=== PATIENT | male | born 1975 | race Two or more races ===

== ENCOUNTER 2024-11-15 22:11 | Emergency (ER) | payer MEDICAID, OTHER ==
[~2024-11-15] VITALS: Ht 188 cm; Wt 98.7 kg
--- NOTE | 2024-11-15 22:39 | ED.PDOC ---
GI ASSESSMENT HPI Comments 49 year old male presents to the ED with a chief complaint of abdominal pain onset today (11/15/24) around 16:00. Patient began experiencing sharp, epigastric pain around 16:00, shortly after eating dinner as well as an episode of nausea/vomiting. Over the weekend, patient states he was working under the sun, was drinking lemonade with salt, began experiencing diarrhea and took Imodium medication. Today, patient took Omeprazole and Pepcid, medication that was prescribed to his son for similar symptoms, had no relief of symptoms. Denies fever, chills, hematemesis, melena, dizziness, chest pain, shortness of breath, dysuria, hematuria. No other associated symptoms, modifiers, recent injuries or sick contacts present at this time. Chief Complaint: Abdominal Pain Time Seen by MD: 22:25 Reviewed Notes: Medications, Allergies Allergies: Coded Allergies: NO KNOWN ALLERGIES (Unverified , 11/15/24) Home Meds Active Scripts Gabapentin (Once-Daily) (Gabapentin) 300 Mg Tab, 300 MG PO Q6HP PRN, #60 TAB Prov:CESAR MARQUEZ MD 11/16/24 Ondansetron HCl (Ondansetron Hydrochloride) 8 Mg Tab, 8 MG PO Q6HP PRN, #30 TAB Prov:CESAR MARQUEZ MD 11/16/24 Information Source: Patient, Spouse Mode of Arrival: Ambulatory Timing: Hours Duration: Since onset Prehospital treatment: None Quality: Sharp Severity: Moderate Recent: None Recent Hx of: None Pain Location: Epigastric Modifying Factors: Nothing Associated sign and symptoms: Nausea, Vomiting, Abdominal Pain Past Medical History PAST MEDICAL HISTORY: Denies Surgical History: Cholecystectomy Family History Family History: Reviewed,noncontributory to illness, No family hx of Cancer, No family hx of DM, No family hx of Heart christina, No family hx of HTN, No family hx ofKidney christina, No family hx of Liver christina, No family hx of Lung christina, No family hx of Stroke Social History Smoker: Non-Smoker Alcohol: Denies ETOH Use Drugs: Denies Drug Use Lives In: Home Constitutional: denies: chills, diaphoresis, fatigue, fever, malaise, sweats, weakness, others EENTM: denies: blurred vision, double vision, ear bleeding, ear discharge, ear drainage, ear pain, ear ringing, eye pain, eye redness, hearing loss, mouth pain, mouth swelling, nasal discharge, nose bleeding, nose congestion, nose pain, photophobia, tearing, throat pain, throat swelling, voice changes, others Respiratory: denies: cough, hemoptysis, orthopnea, SOB at rest, shortness of breath, SOB with excertion, stridor, wheezing, others Cardiovascular: denies: chest pain, dizzy spells, diaphoresis, Dyspnea on exertion, edema, irregular heart beat, left arm pain, lightheadedness, palpitations, PND, syncope, others Gastrointestinal: reports: abdominal pain, nausea, vomiting; denies: abdomen distended, blood streaked bowels, constipated, diarrhea, dysphagia, difficulty swallowing, hematemesis, melena, poor appetite, poor fluid intake, rectal bleeding, rectal pain, others Genitourinary: denies: burning, dysuria, flank pain, frequency, hematuria, incontinence, penile discharge, penile sore, pain, testicle pain, testicle swelling, urgency, others Neurological: denies: dizziness, fainting, headache, left sided numbness, left sided weakness, numbness, paresthesia, pre-existing deficit, right sided numbness, right sided weakness, seizure, speech problems, tingling, tremors, weakness, others Musculoskeletal: denies: back pain, gout, joint pain, joint swelling, muscle pain, muscle stiffness, neck pain, others Integumetry: denies: bruises, change in color, change in hair/nails, dryness, laceration, lesions, lumps, rash, wounds, others Allergic/Immunocompromised: denies: Difficulty Healing, Frequent Infections, Hives, Itching, others Hematologic/Lymphatic: denies: anemia, blood clots, easy bleeding, easy bruising, swollen glands, others Endocrine: denies: excessive hunger, excessive sweating, excessive thirst, excessive urination, flushing, intolerance to cold, intolerance to heat, unexplained weight gain, unexplained weight loss, others Psychiatric: denies: anxiety, bipolar disorder, depression, hopeless, panic disorder, schizophrenia, sleepless, suicidal, others All Other Systems: Reviewed and Negative Physical Exam General Appearance: Normal HEENT: Normal ENT Inspection, Pharynx Normal, TMs Normal Neck: Full Range of Motion, Non-Tender, Normal, Normal Inspection Respiratory: Chest Non-Tender, Lungs Clear, No Accessory Muscle Use, No Respiratory Distress, Normal Breath Sounds Cardiovascular: No Edema, No JVD, No Murmur, No Gallop, Normal Peripheral Pulses, Regular Rate/Rhythm Breast Exam: Deferred Gastrointestinal: No Organomegaly, Non Tender, No Pulsatile Mass, Normal Bowel Sounds, Soft Genitalia: Deferred Pelvic: Deferred Rectal: Deferred Extremities: No calf tenderness, Normal capillary refill, Normal inspection, Normal range of motion, Non-tender, No pedal edema Musculoskeletal : Apperance: Normal Neurologic: Alert, inspector health care facilities II-XII nml as Tested, No Motor Deficits, Normal Affect, Normal Mood, No Sensory Deficits Cerebellar Function: Normal Reflexes: Normal Skin: Dry, Normal Color, Warm Lymphatic: No Adenopathy Was a procedure done? Was a procedure done?: No GI differential Dx Differential Diagnosis: Appendicitis, Cholecystitis, Constipation, Diverticular disease, Gastritis/PUD, Gastroenteritis, GI hemorrhage, Hernia, Inflammatory BD, Ischemic Bowel, Other X-Ray, Labs, Meds, VS Vital Signs Date Time Temp Pulse Resp B/P (MAP) Pulse Ox O2 Delivery O2 Flow Rate FiO2 11/16/24 04:15 77 18 94 Room Air* 0 21 11/16/24 04:15 98.2 94 18 129/82 (98) 94 98.2 11/16/24 02:44 86 18 128/76 (93) 95 11/16/24 02:09 83 19 128/76 11/16/24 01:39 80 18 134/88 11/16/24 01:32 99.0 87 18 134/88 (103) 96 99.0 11/15/24 22:24 100.0 90 14 154/92 96 100.0 Lab Test 11/15/24 22:40 11/15/24 22:23 Range/Units White Blood Count 12.4 H 4.4-10.8 10^3/uL Red Blood Count 4.79 4.5-5.90 10^6/uL Hemoglobin 15.0 13.5-17.5 g/dL Hematocrit 44.2 41.0-53.0 % Mean Corpuscular Volume 92.3 80.0-100.0 fL Mean Corpuscular Hemoglobin 31.4 28.0-32.0 pg Mean Corpuscular Hemoglobin Concent 34.1 32.0-36.0 g/dL Red Cell Distribution Width 14.2 11.8-14.3 % Platelet Count 194 140-450 10^3/uL Mean Platelet Volume 9.4 6.9-10.8 fL Neutrophils (%) (Auto) 93.8 H 37.0-80.0 % Lymphocytes (%) (Auto) 3.6 L 10.0-50.0 % Monocytes (%) (Auto) 2.6 0.0-12.0 % Eosinophils (%) (Auto) 0.0 0.0-7.0 % Basophils (%) (Auto) 0.0 0.0-2.0 % Neutrophils # (Auto) 11.6 H 1.6-8.6 10 ^3/uL Lymphocytes # (Auto) 0.4 0.4-5.4 10 ^3/uL Monocytes # (Auto) 0.3 0-1.3 10 ^3/uL Eosinophils # (Auto) 0 0-0.8 10 ^3/uL Basophils # (Auto) 0 0-0.2 10 ^3/uL Nucleated Red Blood Cells 0.0 % Sodium Level 142 136-145 mmol/L Potassium Level 4.1 3.5-5.1 mmol/L Chloride Level 106 98-107 mmol/L Carbon Dioxide Level 28 20-31 mmol/L Anion Gap 8 5-15 Blood Urea Nitrogen 13 9-23 mg/dL Creatinine 1.19 0.700-1.30 mg/dL Glomerular Filtration Rate Calc 74 >90 mL/min BUN/Creatinine Ratio 10.9 10.0-20.0 Serum Glucose 142 H 74-106 mg/dL Calcium Level 9.9 8.7-10.4 mg/dL Total Bilirubin 2.0 H 0.2-1.0 mg/dL Aspartate Amino Transferase (AST) 588 H 13-40 U/L Alanine Aminotransferase (ALT) 448 H 7-40 U/L Alkaline Phosphatase 119 H 46-116 U/L Total Protein 7.6 5.7-8.2 g/dL Albumin 4.9 H 3.2-4.8 g/dL Lipase 81 H 12-53 U/L Urine Color Yellow Yellow Urine Clarity Clear Clear Urine pH 8.0 5.0-9.0 Urine Specific [place] 1.020 1.001-1.035 Urine Protein Negative Negative Urine Ketones Negative Negative Urine Blood Negative Negative /uL Urine Nitrite Negative Negative Urine Bilirubin Negative Negative Urine Urobilinogen 2 H Negative mg/dL Urine Leukocyte Esterase Negative Negative /uL Urine RBC 1 0 - 3 /hpf Urine Microscopic WBC 1 0-3 /HPF Urine Squamous Epithelial Cells Few <5 /hpf Urine Bacteria None seen None Seen /hpf Urine Mucus Few None Seen Urine Glucose 1+ H Normal mg/dL Current Medications Medications (Trade) Dose Ordered Sig/Korina Route Start Time Stop Time Status Last Admin Ondansetron HCl (Zofran) 4 mg ONCE ONCE IV 11/15/24 22:45 11/15/24 22:46 DC 11/16/24 01:38 Sodium Chloride 1,000 ml @ 1,000 mls/hr Q1H ONCE IVB 11/15/24 22:45 11/15/24 23:44 DC 11/16/24 01:39 Morphine Sulfate 4 mg ONCE ONCE IV 11/15/24 22:45 11/15/24 22:46 DC 11/16/24 01:39 Time of 1ST Reevaluation: 22:55 Reevaluation 1ST: Unchanged Patient Education/Counseling: Diagnosis, Treatment, Prognosis Family Education/Counseling: Diagnosis, Treatment, Prognosis Additional Information The following tests were ordered, and results were reviewed by me: CBC, CMP, LIPASE, UA, CT AB PEL WITH IV CON Additional Information was gathered from interviewing the following independent historians: spouse I reviewed and agreed with the following test results read by other providers: CT AB PEL WITH IV CON I discussed treatment and results with medical personnel and: patient and spouse Comprehensive systems review obtained and negative except for what is stated in the HPI. SEPSIS Sepsis Screen Date sepsis recognized/suspect: Nov 15, 2024 Time Sepsis recognized/suspect: 2223 Recent Procedure: No On Antibiotic Therapy: No Respiratory Rate >20: No Heart Rate >90: No Temp<36 C (96.8 F) or >38.3 C: No SBP <90 or MAP <65 mmHG: No New Acute Mental Status Change: No Is the patient on CPAP, BIPAP,: No Physician Orders Ct Ab Pel With Iv Con Only (11/15/24 22:33) Vital Signs Date Time Temp Pulse Resp B/P (MAP) Pulse Ox O2 Delivery O2 Flow Rate FiO2 11/16/24 04:15 77 18 94 Room Air* 0 21 11/16/24 04:15 98.2 94 18 129/82 (98) 94 98.2 11/16/24 02:44 86 18 128/76 (93) 95 11/16/24 02:09 83 19 128/76 11/16/24 01:39 80 18 134/88 11/16/24 01:32 99.0 87 18 134/88 (103) 96 99.0 11/15/24 22:24 100.0 90 14 154/92 96 100.0 Laboratory Tests Test 11/15/24 22:40 White Blood Count 12.4 10^3/uL (4.4-10.8) H Medications Medications Dose Ordered Sig/Korina Route Start Time Stop Time Status Last Admin Dose Admin Morphine Sulfate 4 mg ONCE ONCE IV 11/15/24 22:45 11/15/24 22:46 DC 11/16/24 01:39 Ondansetron HCl 4 mg ONCE ONCE IV 11/15/24 22:45 11/15/24 22:46 DC 11/16/24 01:38 Sodium Chloride 1,000 ml @ 1,000 mls/hr Q1H ONCE IVB 11/15/24 22:45 11/15/24 23:44 DC 11/16/24 01:39 Departure 1 Departure Time of Disposition: 01:00 Impression: Primary Impression: Pancreatitis Additional Impression: Elevated liver function tests Disposition: HOME / SELF CARE / HOMELESS Condition: Stable e-Prescriptions Gabapentin (Once-Daily) (Gabapentin) 300 Mg Tab 300 MG PO Q6HP PRN, #60 TAB Prov: CESAR MARQUEZ MD 11/16/24 Ondansetron HCl (Ondansetron Hydrochloride) 8 Mg Tab 8 MG PO Q6HP PRN, #30 TAB Prov: CESAR MARQUEZ MD 11/16/24 Discharged With: Self Critical Care Note Critical Care Time?: No Stability Stability form required: No I personally scribed for CESAR MARQUEZ MD ([email or web address]) on 11/15/24 at 22:39. Electronically submitted by Mica Chinchilla ([email or web address]). I personally scribed for CESAR MARQUEZ MD ([email or web address]) on 11/15/24 at 22:52. Electronically submitted by Mica Chinchilla ([email or web address]). CESAR MARQUEZ MD Nov 15, 2024 22:39
[2024-11-15 22:52] LABS: Hematocrit 44.2 % (41.0-53.0); Hemoglobin 15.0 g/dL (13.5-17.5); Mean Corpuscular Hemoglobin 31.4 pg (28.0-32.0); Mean Corpuscular Volume 92.3 fL (80.0-100.0); Nucleated Red Blood Cells % 0.0 %
[2024-11-15 23:09] LABS: Urine Protein, UAD Negative (Negative)
[2024-11-15 23:16] LABS: Anion Gap 8 (5-15); BUN/Creatinine Ratio 10.9 (10.0-20.0); Blood Urea Nitrogen 13 mg/dL (9-23); Calcium 9.9 mg/dL (8.7-10.4); Carbon Dioxide 28 mmol/L (20-31); Chloride 106 mmol/L (98-107); Potassium 4.1 mmol/L (3.5-5.1); Sodium 142 mmol/L (136-145); Total Protein 7.6 g/dL (5.7-8.2)
[2024-11-15 23:23] LABS: Alanine Aminotransferase 448 U/L (7-40); Albumin 4.9 g/dL (3.2-4.8); Alkaline Phosphatase 119 U/L (46-116); Bilirubin, Total 2.0 mg/dL (0.2-1.0); Glucose 142 mg/dL (74-106); Lipase 81 U/L (12-53)
[2024-11-16] MEDS: ONDANSETRON HCL 4 MG/2 ML VIAL IV ONE (01:38)
[2024-11-16] MEDS: MORPHINE SULFATE 4 MG/ML SYR/VIAL IV ONE (01:39)
[2024-11-16] MEDS: SODIUM CHLORIDE 0.9% 1,000 ML IVB ONE (01:39)
[2024-11-16] MEDS: IOHEXOL 300 MG/ML 100ML BOTTLE IJ ONE (02:15)
--- NOTE | 2024-11-16 02:33 | DVH ---
Exam: CT CT AB PEL WITH IV CON ONLY History: periumbilical abd pain COMPARISON: None Technique: Multidetector spiral CT of the abdomen and pelvis was performed from lung bases to pubic s ymphysis. Intravenous contrast was administered during this examination. Portal venous imaging was o btained. Axial, coronal and sagittal multiplanar reformats were performed by the technologist on a [employer] workstation. Radiation Dose : 1. Abdomen/Pelvis: CTDIvol 25.03 mGy, DLP 1552.76 mGy*cm. CONTRAST: Type of contrast: Omniscan 300 Contrast injected: 90 ml Findings: Lung Bases: No acute or significant lung base finding. Normal heart size. No pleural or pericardial effusion. Liver: The liver is normal in size. No focal lesions. Normal hepatic vascular enhancement. Gallbladder and Biliary Tree: Status post cholecystectomy. Spleen: Unremarkable Pancreas: The pancreas is normal in appearance without focal lesions or abnormal enhancement. Adrenal Glands: Unremarkable Kidneys: No nephrolithiasis or hydronephrosis. Bilateral renal cortical cysts measure 1.0 cm within the left superior pole and 1.1 cm within the right inferior pole. Bladder: Unremarkable Bowel: The stomach is grossly normal in appearance. Small bowel and colon are normal in caliber and d istribution. The appendix is normal. Ascites: Absent Lymphadenopathy: No mesenteric, retroperitoneal or periportal lymphadenopathy. Abdominal Wall and Mesentery: Small fat containing umbilical hernia. Vasculature: The visualized abdominal aorta is normal in size and caliber. Abdominal and pelvic vess els demonstrate normal enhancement. Pelvic Organs: Unremarkable Musculoskeletal: No aggressive focal bony lesions, acute fractures or dislocation. IMPRESSION: 1. No acute abdominal or pelvic finding. Radiation optimization: All CT scans at this facility use at least one of these dose optimization suhas hniques: automated exposure control mA and/or kV adjustment per patient size (includes targeted exam s where dose is matched to clinical indication) or iterative reconstruction.
[2024-11-16] MEDS ORDERED: GABA300T4 PO (03:10)
[2024-11-16] MEDS ORDERED: ONDA-180 PO (03:10)
[2024-11-16 04:15] VITALS: BP 129/82; PULSE 77; RESP 18; TEMP 98.2; O2SAT 94
== END 2024-11-16 04:29 | disposition home or self-care (01) ==
LOC: ER 22:11
DX: K85.90 Acute pancreatitis without necrosis or infection, unspecified (principal); R79.89 Other specified abnormal findings of blood chemistry; Z90.49 Acquired absence of other specified parts of digestive tract; Z79.899 Other long term (current) drug therapy
CPT/HCPCS: 36415; 74177; 80053; 81001; 83690; 85025; 96361; 96374; 96375; 99285; J2270; J2405; J7030; Q9967

== ENCOUNTER 2025-03-06 02:39 | Emergency (ER) | payer SELFPAY ==
[~2025-03-06] VITALS: Ht 188 cm; Wt 90.2 kg
[~2025-03-06 02:39] MED LIST: GABA300T4 PO; ONDA-180 PO
--- NOTE | 2025-03-06 03:51 | ED.PDOC ---
History of Present Illness HPI Comments 49-year-old male who came to ER for abdominal pain. Patient has a history of pancreatitis status post cholecystectomy. 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 Six months ago he was diagnosed of pancreatitis. Patient has been experiencing epigastric abdominal pain since yesterday, radiating to the back, associated bouts with nausea and vomiting. Patient states pain similar to when he has a pancreatitis. REVIEW OF SYSTEMS: General: No fever, no chills, or fatigue HEENT: No sore throat, no earache, no congestion, no neck pain. Cardiac: No chest pain. No palpitations. Lungs: No shortness of breath, no cough. GI: + nausea, + vomiting, no diarrhea, no constipation, + abdominal pain : No dysuria, frequency, or urgency. No hematuria. Musculoskeletal: No joint pain , no joint swelling, no extremity edema. Skin: No rash, no itching. Neuro: No headache, no dizziness, no weakness (And as sated in HPI) PHYSICAL EXAM: General: Awake, alert and oriented. No acute distress. Skin: Skin in warm, dry and intact. Appropriate color for ethnicity. HEENT: The head is normocephalic and atraumatic. Conjunctivae are clear without exudates or hemorrhage. Sclera is non-icteric. Eyelids are normal in appearance without swelling or lesions. Oral mucosa is pink and moist Neck: The neck is supple with normal range of motion. No JVD. Cardiac: Heart rate and rhythm are normal. No murmurs, gallops, or rubs are auscultated. Respiratory: No signs of respiratory distress. Lung sounds are clear in all lobes bilaterally without rales, rhonchi, or wheezes. Abdominal: Abdomen is soft, positive epigastric tenderness, no distention, no guarding or rigidity. Bowel sounds are present and normoactive in all four quadrants. Extremities: Upper and lower extremities are atraumatic in appearance without deformity or edema. Neurological: The patient is awake, alert and oriented to person, place, and time with normal speech. Speech is clear. There is no facial asymmetry. Psychiatric: Appropriate mood and affect. Good judgement and insight. Chief Complaint: Abdominal Pain Time Seen by MD: 03:51 Reviewed Notes: Nurses Notes Allergies: Coded Allergies: NO KNOWN ALLERGIES (Unverified , 11/15/24) Home Meds Active Scripts Gabapentin (Once-Daily) (Gabapentin) 300 Mg Tab, 300 MG PO Q6HP PRN, #60 TAB Prov:CESAR MARQUEZ MD 11/16/24 Ondansetron HCl (Ondansetron Hydrochloride) 8 Mg Tab, 8 MG PO Q6HP PRN, #30 TAB Prov:CESAR MARQUEZ MD 11/16/24 Information Source: Patient Mode of Arrival: Ambulatory Past Medical History Past Medical History (Other): Pancreatitis Surgical History: Cholecystectomy Family History Family History: Reviewed,noncontributory to illness, No family hx of Cancer, No family hx of DM, No family hx of Heart christina, No family hx of HTN, No family hx ofKidney christina, No family hx of Liver christina, No family hx of Lung christina, No family hx of Stroke Social History Smoker: Non-Smoker Alcohol: Sober (Six-months) Drugs: Denies Drug Use Lives In: Home Was a procedure done? Was a procedure done?: No Differential Dx Considerations may include: Gastritis, gastroenteritis, pancreatitis, dehydration, other X-Ray, Labs, Meds, VS Vital Signs Date Time Temp Pulse Resp B/P (MAP) Pulse Ox O2 Delivery O2 Flow Rate FiO2 03/06/25 07:37 Room Air* 0 21 03/06/25 06:56 98.6 68 14 119/78 (92) 97 98.6 03/06/25 05:00 78 17 141/82 (101) 80 03/06/25 05:00 80 17 141/82 03/06/25 04:14 98.2 78 18 128/82 (97) 97 98.2 03/06/25 04:10 74 18 128/74 03/06/25 02:40 98.2 76 16 145/92 99 98.2 Lab Test 03/06/25 06:15 03/06/25 03:52 Range/Units Troponin I High Sensitivity 3 L </=54 ng/L Amylase Level 74 30-118 U/L White Blood Count 11.7 H 4.4-10.8 10^3/uL Red Blood Count 4.58 4.5-5.90 10^6/uL Hemoglobin 14.5 13.5-17.5 g/dL Hematocrit 41.6 41.0-53.0 % Mean Corpuscular Volume 90.7 80.0-100.0 fL Mean Corpuscular Hemoglobin 31.5 28.0-32.0 pg Mean Corpuscular Hemoglobin Concent 34.8 32.0-36.0 g/dL Red Cell Distribution Width 14.5 H 11.8-14.3 % Platelet Count 188 140-450 10^3/uL Mean Platelet Volume 9.9 6.9-10.8 fL Neutrophils (%) (Auto) 91.7 H 37.0-80.0 % Lymphocytes (%) (Auto) 2.9 L 10.0-50.0 % Monocytes (%) (Auto) 5.2 0.0-12.0 % Eosinophils (%) (Auto) 0.0 0.0-7.0 % Basophils (%) (Auto) 0.2 0.0-2.0 % Neutrophils # (Auto) 10.7 H 1.6-8.6 10 ^3/uL Lymphocytes # (Auto) 0.3 L 0.4-5.4 10 ^3/uL Monocytes # (Auto) 0.6 0-1.3 10 ^3/uL Eosinophils # (Auto) 0 0-0.8 10 ^3/uL Basophils # (Auto) 0 0-0.2 10 ^3/uL Nucleated Red Blood Cells 0.0 % Sodium Level 142 136-145 mmol/L Potassium Level 3.8 3.5-5.1 mmol/L Chloride Level 103 98-107 mmol/L Carbon Dioxide Level 28 20-31 mmol/L Anion Gap 11 5-15 Blood Urea Nitrogen 9 9-23 mg/dL Creatinine 0.99 0.700-1.30 mg/dL Glomerular Filtration Rate Calc 93 >90 mL/min BUN/Creatinine Ratio 9.1 L 10.0-20.0 Serum Glucose 131 H 74-106 mg/dL Calcium Level 10.0 8.7-10.4 mg/dL Total Bilirubin 2.6 H 0.2-1.0 mg/dL Aspartate Amino Transferase (AST) 277 H 13-40 U/L Alanine Aminotransferase (ALT) 223 H 7-40 U/L Alkaline Phosphatase 223 H 46-116 U/L Total Protein 8.0 5.7-8.2 g/dL Albumin 4.6 3.2-4.8 g/dL Lipase 54 H 12-53 U/L Time of 1ST Reevaluation: 03:46 Reevaluation 1ST: Unchanged Patient Education/Counseling: Need For Follow Up Family Education/Counseling: No Family Present SEPSIS Sepsis Screen Date sepsis recognized/suspect: Mar 06, 2025 Time Sepsis recognized/suspect: 024 Recent Procedure: No On Antibiotic Therapy: No Respiratory Rate >20: No Heart Rate >90: No Temp<36 C (96.8 F) or >38.3 C: No SBP <90 or MAP <65 mmHG: No New Acute Mental Status Change: No Is the patient on CPAP, BIPAP,: No Physician Orders Ct Ab Pel With Iv Con Only (03/06/25 03:42) Electrocardigram (03/06/25 06:06) Vital Signs Date Time Temp Pulse Resp B/P (MAP) Pulse Ox O2 Delivery O2 Flow Rate FiO2 03/06/25 07:37 Room Air* 0 21 03/06/25 06:56 98.6 68 14 119/78 (92) 97 98.6 03/06/25 05:00 78 17 141/82 (101) 80 03/06/25 05:00 80 17 141/82 03/06/25 04:14 98.2 78 18 128/82 (97) 97 98.2 03/06/25 04:10 74 18 128/74 03/06/25 02:40 98.2 76 16 145/92 99 98.2 Laboratory Tests Test 03/06/25 03:52 White Blood Count 11.7 10^3/uL (4.4-10.8) H Departure 1 Departure Time of Disposition: 06:08 Impression: Primary Impression: Elevated LFTs Disposition: ADMITTED INPATIENT Condition: Stable Comments Patient is stabilized in the emergency department. Patient admitted to hospitalist service for further treatment, evaluation and monitoring pending ERCP. Critical Care Note Critical Care Time?: No Stability Stability form required: No Heart Score Heart Score: Heart Score Response (Comments) Value History N/A 0 EKG N/A 0 Age N/A 0 Risk Factors N/A 0 Troponin N/A 0 Total 0 I personally scribed for GISEL JUSTICE MD ([email or web address]) on 03/06/25 at 03:51. Electronically submitted by Jayjay Arboleda ([email or web address]). GISEL JUSTICE MD Mar 06, 2025 03:51
[2025-03-06] MEDS: ONDANSETRON HCL 4 MG/2 ML VIAL IV ONE (04:09)
[2025-03-06] MEDS: MORPHINE SULFATE INJ 2 MG/ml SYRG IV ONE (04:10)
[2025-03-06 04:27] LABS: Hematocrit 41.6 % (41.0-53.0); Hemoglobin 14.5 g/dL (13.5-17.5); Mean Corpuscular Hemoglobin 31.5 pg (28.0-32.0); Mean Corpuscular Volume 90.7 fL (80.0-100.0); Nucleated Red Blood Cells % 0.0 %
[2025-03-06 04:39] LABS: Albumin 4.6 g/dL (3.2-4.8); Anion Gap 11 (5-15); BUN/Creatinine Ratio 9.1 (10.0-20.0); Calcium 10.0 mg/dL (8.7-10.4); Carbon Dioxide 28 mmol/L (20-31); Chloride 103 mmol/L (98-107); Potassium 3.8 mmol/L (3.5-5.1); Sodium 142 mmol/L (136-145); Total Protein 8.0 g/dL (5.7-8.2)
[2025-03-06] MEDS: IOHEXOL 300 MG/ML 100ML BOTTLE IJ ONE (04:44)
[2025-03-06 05:00] LABS: Alanine Aminotransferase 223 U/L (7-40); Alkaline Phosphatase 223 U/L (46-116); Bilirubin, Total 2.6 mg/dL (0.2-1.0); Blood Urea Nitrogen 9 mg/dL (9-23); Glucose 131 mg/dL (74-106); Lipase 54 U/L (12-53)
--- NOTE | 2025-03-06 05:46 | DVH ---
Exam: CT CT AB PEL WITH IV CON ONLY History: Epigastric pain, hx pancreatitis Comparison Study: CT CT AB PEL WITH IV CON ONLY on DOS: 11/16/24 Technique: Multidetector spiral CT of the abdomen was performed from lung bases to pubic symphysis. Axial imaging was performed with intravenous contrast following the uneventful administration of 100 ml Omnipaque 300. Coronal and sagittal multiplanar reformats were obtained from the axial data set by the technologist. Radiation Dose : 1. Abdomen/Pelvis: CTDIvol 14.7 mGy, DLP 790.9 mGy*cm. Findings: Lung Bases: Lung bases are clear. Visualized portions of the heart and pericardium are unremarkable. Liver: The liver is normal in size. No focal lesions. Gallbladder and Biliary Tree: The gallbladder is surgically absent. There is no intrahepatic biliary ductal dilatation. The common bile duct is dilated measuring 1.5 cm. Mild enhancement of the wall of both the common bile duct and common hepatic duct. There is fat stranding in the gallbladder fossa. Spleen: Unremarkable Pancreas: The pancreas enhances normally and there are no focal lesions. The main pancreatic duct is not dilated Adrenal Glands: Unremarkable Kidneys: Kidneys enhance symmetrically. There is a 10 mm left renal cyst. No calculi or hydronephrosis. GI tract: The stomach is distended. No evidence of small bowel wall thickening or abnormal dilatation to suggest bowel obstruction. There is colonic diverticulosis without acute diverticulitis. The appendix is visualized and normal in caliber. No periappendiceal fat stranding. Peritoneum/mesentery/retroperitoneum. No evidence of free intraperitoneal air. No ascites. No evidence of suspicious lymphadenopathy. Abdominal Wall: Bilateral fat containing inguinal hernias. Vasculature: Abdominal aorta and main branches are unremarkable. Normal vascular enhancement. Urinary Bladder: Grossly unremarkable for degree of distention. Pelvic Organs: Unremarkable Musculoskeletal: No aggressive focal bony lesions, acute fractures or dislocation. There is intervertebral disc space narrowing at L5-S1. IMPRESSION: 1. Status post cholecystectomy with fat stranding in the gallbladder fossa. Dilated common bile duct measuring 1.5 cm. Dilated common hepatic duct measuring 1.1 cm. Possible considerations include but are not limited to distal obstruction versus infection. MRCP is recommended for further evaluation. 2. Colonic diverticulosis without acute diverticulitis.
[2025-03-06] MEDS: SODIUM CHLORIDE 0.9% 1,000 ML IV ONE (07:40)
[2025-03-06] MEDS ORDERED: DOCUSATE SOD 100 MG CAP PO PRN (07:45)
[2025-03-06] MEDS ORDERED: HYDROcodone-ACET 5/325MG TAB PO PRN (07:45)
[2025-03-06] MEDS ORDERED: ACETAMINOPHEN 325 MG TAB PO PRN (07:45)
[2025-03-06] MEDS: PIPERACILLIN-TAZOB 3.375GM 100 ML IV ONE (07:45)
[2025-03-06] MEDS ORDERED: ONDANSETRON HCL 4 MG/2 ML VIAL IV PRN (07:45)
--- NOTE | 2025-03-06 08:45 | DVH ---
CLINICAL INFORMATION: Common bile duct obstruction. TECHNIQUE: Multisequence multiplanar MRI images of the abdomen were obtained without IV contrast. Heavily T2-weighted MRCP images were obtained. 3D MRCP images were created. COMPARISON: CT of the abdomen and pelvis dated 03/06/2025. FINDINGS: Postsurgical changes of prior cholecystectomy. Common bile duct is dilated, measuring up to 1.3 cm in diameter with obstructing gallstone at the distal common bile duct. There is also mild intrahepatic biliary ductal dilatation. Pancreatic duct appears normal. Small T2 hyperintense foci in the kidneys, likely small cysts. No hydronephrosis. No other significant abnormality identified in the abdomen on limited noncontrast enhanced MRCP images. IMPRESSION: Biliary obstruction due to gallstone in the distal common bile duct.
[2025-03-06] MEDS: SODIUM CHLORIDE 0.9% 1,000 ML IV SCH (08:55)
[2025-03-06 22:55] VITALS: BP 141/69; PULSE 60; RESP 17; TEMP 98.3; O2SAT 97
== END 2025-03-06 23:39 | disposition short-term general hospital (02) ==
LOC: ER 02:39 → OVERFLOW 07:40 → UNDOADMIN 07:40 → UNDODISIN 23:39
DX: R74.01 Elevation of levels of liver transaminase levels (principal)
CPT/HCPCS: 36415; 74177; 74181; 80053; 82150; 83690; 84484; 85025; 96365; 96366; 96375; 99285; J2270; J2405; J2543; J7030; Q9967; 96374; G0378